=== PATIENT | female | born 1985 | race Caucasian/White ===

== ENCOUNTER → 2018-01-08 | Outpatient (CLI) | payer OTHER ==
[~2018-01-08] VITALS: Ht 172.7 cm; Wt 107.5 kg
[~2018-01-08] MED LIST: CARISOPRODOL 3350 MG PO; HYDROCHLOROTH12.5 M2 PO; NAPROXEN375 MG PO; NEURONTIN 300300 M1 PO; SEASONIQUE 0.11 EACH PO; SINGULAIR 10 MG10 M1 PO; TOPROL XL25 MG PO; UNICOMPLEX M TA1 TA1 PO
--- NOTE | ~2018-01-08 | HPC ---
[facility] [place] [address] PAIN MANAGEMENT CONSULTATION Name: SERGIO PARADA Room #: REG [facility] Ryan#: [id number] Admission: 01/08/18 Attend Phys: Derek Swann DO Discharge: Date of : 87 Report #: [id number] THIS REPORT FOR: //name// CC: Ann Swann DATE OF SERVICE: 01/08/2018 The patient is a very pleasant 32-year-old female seen in consultation 12/25/2017. We diagnosed the patient with symptomatic cervical radiculopathy, sought authorization for cervical epidural injection under fluoroscopy. She presents to pain clinic today for that procedure. Has ongoing pain, neck, left shoulder and arm. Classic neural tensioning symptoms are noted. ASSESSMENT: Symptomatic cervical radiculopathy by clinical exam and history. PROCEDURE: Cervical epidural injection under fluoroscopy. PROCEDURE NOTE: After written and informed consent was obtained including risk of dural puncture, spinal cord trauma, paralysis and increased pain, the patient was taken to the fluoroscopy suite and placed in the prone position, with appropriate abdominal bolstering, neck was flexed, palms under the thighs. Skin was prepped with ChloraPrep. Sterile draping was applied. Skin wheal with 1% Xylocaine was raised. A 22-gauge 3-1/2 inch epidural Tuohy needle was placed via a midline approach at the C7/T1 interspace, advanced under biplanar fluoroscopy using continuous loss of resistance. With appropriate loss of resistance at the expected depth on lateral view, the glass loss of resistance syringe was disconnected. A low volume extension tubing was connected to the needle and a 5 mL syringe. Negative aspiration for cerebrospinal fluid or blood was noted. A 1 mL of Omnipaque was injected which showed spread within the epidural space on biplanar fluoroscopy. This was followed with 80 mg of triamcinolone plus 1 mL of 1.5% preservative Xylocaine. Needle was withdrawn to the interspinous ligament, 0.5 mL of Xylocaine was used to flush the needle. The needle was then completely withdrawn. The area was cleansed. Band-Aid was applied. The patient was allowed to move off the procedure table and ambulated to the recovery room, monitored for an appropriate period of time, discharged in good and stable condition. The patient was discharged in good and stable condition. Follow up in 2 weeks to reevaluate. <ELECTRONICALLY SIGNED> By: Derek Swann DO 01/11/18 0709 [id number] 02 Derek Swann DO /nt
[2018-01-08 09:51] VITALS: BP 153/98
== END | disposition home or self-care (01) ==
LOC: PAIN 07:27
DX: M54.12 Radiculopathy, cervical region (principal); G89.29 Other chronic pain; Z98.890 Other specified postprocedural states; Z88.8 Allergy status to other drugs, medicaments and biological substances; Z79.899 Other long term (current) drug therapy

== ENCOUNTER → 2018-01-29 | Outpatient (CLI) | payer OTHER ==
[~2018-01-29] VITALS: Ht 172.7 cm; Wt 108.9 kg
[~2018-01-29] MED LIST changes: +TRAMADOL 50 MG50 MG PO
--- NOTE | ~2018-01-29 | HPC ---
[facility] [place] [address] PAIN MANAGEMENT CONSULTATION Name: SERGIO PARADA Room #: REG [facility]#: [id number] Admission: 01/29/18 Attend Phys: Derek Swann DO Discharge: Date of : 86 Report #: [id number] THIS REPORT FOR: //name// CC: Ann Swann DATE OF SERVICE: 01/29/2018 The patient is a very pleasant 32-year-old female, initially seen in consultation on 12/25/2017. We progressed to perform a cervical epidural injection on 01/08/2018. The patient returns to the Pain Clinic today noting significant improvement of baseline pain. She reports being "70%" back to normal. Tingling in the left arm is gone. She does now, however, have simply neck pain. Pain is actually on the other side, right, of the neck. It is exacerbated with rotation, either left or right. Cervical flexion and extension only nominally exacerbate the right-sided neck pain. Fortunately, the neuropathic symptoms are gone (negative Lhermitte's). I reviewed the patient's diagnostic findings including MRI of the cervical spine from 07/29/2017 noting disk desiccation at C5-C6 and C6-C7 with facet joint hypertrophy, degenerative changes of the small left hyperintense perineural cyst at C4-C5. PHYSICAL EXAMINATION: Otherwise notes a pleasant 32-year-old female, BMI is modestly elevated 36.5 kg/m2. Blood pressure is 144/85, pulse 89, respirations 16. Cervical range of motion limited as noted above. Upper extremity strength, however, is generally preserved. Hand grasp is symmetric. Skin integument is intact. She is alert and oriented to person, place, and time, judged to be a reasonable historian. ASSESSMENT: 1. Symptomatic cervical radiculopathy by clinical exam and history. Symptoms relatively improved following single epidural injection. 2. Cervical spondylosis without myelopathy with pain in the right neck corresponding with cervical facet changes on MRI. RECOMMENDATIONS: 1. We will renew naproxen sodium 375 b.i.d., 60 tablets. 2. Renew tramadol 50 mg 1 tablet q. 4 hours as needed for pain, limit 60 tablets, no refill. 3. We will seek authorization for right-sided C4-C5, C5-C6 and C6-C7 cervical facets on the right. [address] [address] PAIN MANAGEMENT CONSULTATION Name: SERGIO PARADA Room #: REG [facility] Ryan#: [id number] Admission: 01/29/18 Attend Phys: Derek Swann DO Discharge: Date of : 87 Report #: [id number] 4. I will plan on seeing the patient back after the 07 of February, 30 days after her last injection for aforementioned procedure. <ELECTRONICALLY SIGNED> By: Derek Swann DO 02/01/18 0710 [id number] Derek Swann DO /isa
[2018-01-29 12:39] VITALS: BP 144/85
== END ==
LOC: PAIN 01-22 13:25
DX: M47.22 Other spondylosis with radiculopathy, cervical region (principal)

== ENCOUNTER → 2018-02-12 | Outpatient (CLI) | payer OTHER ==
[~2018-02-12] VITALS: Ht 172.7 cm; Wt 107.5 kg
--- NOTE | ~2018-02-12 | HPC ---
[address] [place] [address] PAIN MANAGEMENT CONSULTATION Name: SERGIO PARADA Yumiko [facility] [id number] Admission: 02/12/18 Attend Phys: Derek Swann DO Discharge: Date of : 86 Report #: [id number] THIS REPORT FOR: //name// CC: Ann Swann DATE OF SERVICE: 02/12/2018 The patient is a very pleasant 32-year-old female, prior seen in the Pain Clinic for symptomatic cervical radiculopathy. Cervical epidural injection significantly relieved radicular pain. She was last seen on 01/29/2018 with ongoing cervical spondylitic pain (M47.812). She presents to the Pain Clinic today for prior authorized right-sided cervical facet joint injections under fluoroscopy. ASSESSMENT: Symptomatic cervical spondylosis without myelopathy by clinical exam and history. PROCEDURE: Three-level right cervical facet joint injection under fluoroscopy. PROCEDURE NOTE: After written informed consent was obtained, patient was taken to the fluoroscopy suite and placed in prone position. After sterile prep and drape, skin wheal with Xylocaine was raised. We identified the area of primary pain, which was at C3-C4. We elected to proceed with facet joint injections at C2-C3, C3-C4 and C4-C5. Three 22-gauge stylet needle was placed to contact posterior aspect of the right C2-C3, C3-C4, and C4-C5 cervical facet joint. AP and lateral projections showed good needle placement. 2 mg of Decadron plus 1 mL of 0.5% preservative-free bupivacaine was injected at each site. All 3 needles removed. The area was cleansed, Band-Aids applied. The patient monitored for an appropriate period of time, discharged in good and stable condition. Please note that patient's pain was absent on discharge, having been a 4 on admission. Fluoroscopy time was 9 seconds. <ELECTRONICALLY SIGNED> By: Derek Swann DO 02/15/18 0659 [id number] [id number] Derek Swann DO /nt
[2018-02-12 13:39] VITALS: BP 132/86
== END | disposition home or self-care (01) ==
LOC: PAIN 02-05 07:46
DX: M47.812 Spondylosis without myelopathy or radiculopathy, cervical region (principal); G89.29 Other chronic pain; Z88.8 Allergy status to other drugs, medicaments and biological substances; Z79.899 Other long term (current) drug therapy

== ENCOUNTER → 2019-07-26 | Outpatient (CLI) | payer OTHER ==
[~2019-07-26] VITALS: Ht 172.7 cm; Wt 102.9 kg
[~2019-07-26] MED LIST changes: +SOMA350 MG PO; +ULTRAM 50MG TAB50 MG PO
[2019-07-26 12:50] VITALS: BP 122/76
--- NOTE | 2019-07-26 13:07 | NUR ---
Pain Clinic Assessment: 1. History of Osteoarthritis: Not Applicable History of Rheumatoid Arthritis: Not Applicable 2. Height: 5 ft. 8 in. 172.7 cm. Weight: 226.8 lb. oz. 102.876 kg. Patient's BMI: 34.5 3. Vital Signs: BP: 122/76 Pulse: 129 Resp: 16 Temp: 02 Sat: 100 ECG Mon: 4. Pain Intensity: 6 5. Fall Risk: Dizziness: N Needs help standing or walking: N Fallen in the last 3 months: N Fall risk comments: 6. Patient on Blood Thinner: None 7. History of Hypertension: Y 8. Opioid Therapy greater than 6 weeks: Y Opiate Contract Signed: 9. Risk Assessment Tool Provided: LOW RISK 2/3 10. Functional Assessment Tool: 11. Recreational Drug Use: Never Drug Type: Tobacco Use: Never Smoker Tobacco Type: Amount or Packs/day: How Many Years: Alcohol Use: Yes Frequency: Weekly Quant: WITH DINNER, WEEKENDS
--- NOTE | 2019-08-08 10:05 | HPC ---
[facility] [place] [address] PAIN MANAGEMENT CONSULTATION Name: SERGIO PARADA Room #: REG [facility] Stan.#: [id number] Admission: 07/26/19 Attend Phys: Edison Swann DO Discharge: Date of : 86 Report #: [id number] THIS REPORT FOR: //name// CC: nAn Swann DATE OF SERVICE: 07/26/2019 REFERRING PHYSICIAN: Ann Bernal M.D. CHIEF COMPLAINT: Neck pain, left upper extremity pain with paresthesias. HISTORY OF PRESENT ILLNESS: As you know, the patient is a 33-year-old female who reports a pain level of 6/10 involving the neck and left upper extremity, bilateral shoulders. She states the pain does radiate from the neck into the posterior head. She describes the pain as sharp, shooting and tingling, exacerbated with activities, turning her head. The pain improves with medications, being provided by her PCP in the form of tramadol and reportedly Soma as well as heat and cold compresses. She has been referred back to our service by her PCP to discuss treatment options for ongoing neck pain, likely related to cervical radiculopathy and cervical facet arthropathy. The patient was advised upon making the appointment here at our clinic that we no longer provide intra-articular facet injections for cervical spine nor we do treatments for facet arthropathy in the cervical area with radiofrequency lesioning. This was done by a partner who is no longer with the clinic. She returns today in followup visit per the request of Dr. Ann Bernal to undergo interventional treatments. ALLERGIES: MORPHINE. CURRENT MEDICATIONS: Tramadol 50 mg 2 tabs every 8 hours p.r.n. for pain, naproxen 220 mg twice a day, Soma 350 mg twice a day, multivitamin 1 tab per day, Seasonique 0.15/0.03/0.01 per day, gabapentin 300 mg p.o. at bedtime. SOCIAL HISTORY: The patient denies tobacco, IV or illicit drug use. Admits occasional alcohol beverage. She is working as an office services associate, not receiving workmen's compensation or is trying to obtain discrete benefits. She is unaccompanied at today's visit. REVIEW OF SYSTEMS: Positive for neck pain, left upper extremity pain with paresthesias, head pain. All other review of systems negative per 12-point review of systems other than those listed in history of present illness. IMAGING: No new imaging available. [facility] [address] [place] [address] PAIN MANAGEMENT CONSULTATION Name: SERGIO PARADA Room #: REG [facility]#: [id number] Admission: 07/26/19 Attend Phys: Edison Swann DO Discharge: Date of : 86 Report #: [id number] PHYSICAL EXAMINATION: VITAL SIGNS: Blood pressure 122/76, pulse is 129, respiratory rate 16 and unlabored. The patient is 100% on room air. Height 5 feet 8 inches tall, weight 226.8 pounds, BMI calculated 34.5. GENERAL: Well-developed, well-nourished, well-hydrated 33-year-old female appearing stated age, pain is rated today at around 6/10. HEENT: Normocephalic, atraumatic. Pupils equal, round, reactive to light. Extraocular muscles are intact. EXTREMITIES: Show no clubbing, no cyanosis, no edema. LUNGS: Appear clear. No wheeze, rhonchi or rales. CARDIOVASCULAR: Regular. No appreciable gallop or rub. ABDOMEN: Soft, mildly obese, normoactive bowel sounds. MUSCULOSKELETAL: Cervical provocation testing is met with increasing neck pain, mainly over the left neck area. Deep palpation of the area causes intensification of pain. The patient's Spurling's test is equivocal. Upper extremity strength appears symmetrical 5/5. Muscle bulk and tone equal and symmetrical, intact to light touch from C5 through T1 dermatomes. ASSESSMENT: 1. Possible cervical radiculopathy. 2. Cervical spondylosis with radicular symptoms. 3. Chronic neck pain. 4. Cervicogenic headache. PLAN: 1. Based on today's physical exam and history the patient has provided, the description the patient uses in regards to pain, likely source of the patient's symptoms is a combination of chronic cervical radiculopathy and cervical facet arthropathy. We advised the patient at this time that we at [facility] do provide cervical epidural injections, but we no longer providing a radiofrequency lesioning of the facet joints of the cervical spine as many of the third libertarian payers now considering that an experimental procedure and coverage is not offered from a physician or facility standpoint. This in conjunction with the fact that cervical facet radiofrequency lesioning has been noted to cause peripheral nerve conditions leading to anesthesia dolorosa over the area. We have subsequently discontinued this option of treatment. If the patient wishes to seek further treatment referral will need to be made to a physician who continues to provide this option of treatment. 2. In regards to the patient's suspected radicular symptoms, we have suggested treatment options, which would include physical therapy, stretching exercise, core strengthening and traction techniques, which will have to be incorporated into any treatment course. We discussed medication management utilizing neuropathic pain medications and a consistent nonsteroidal anti-inflammatory. We also discussed cervical epidural injection under fluoroscopic guidance for which we will need to obtain authorization and finally surgical decompression. After reviewing risks and benefits of all proposed treatment options, the [facility] [address] [place] [address] PAIN MANAGEMENT CONSULTATION Name: SERGIO PARADA Room #: REG [facility]#: [id number] Admission: 07/26/19 Attend Phys: Edison Swann DO Discharge: Date of : 86 Report #: [id number] patient chose to move forward with a cervical epidural injection under fluoroscopic guidance. 3. The patient was advised that due to third libertarian payer restrictions, authorization will have to be obtained before the patient could undergo a cervical epidural injection. The patient will undergo the cervical epidural injection as quickly as possible. Once we have achieved this authorization, we will have the patient return to undergo this procedure. 4. The patient indicates that she has been advised by her PCP to continue the tramadol therapy and Soma. This has to be received from our clinic while we are treating her. We have agreed to provide the patient with tramadol and Soma medication dosing understanding that we will not be offering long-term treatment options from a medication standpoint as we are not taking on any new medication management patients at this time. We will be willing to provide the medication over the timeframe that we are treating the patient for the proposed 3 epidural injections, once this is completed, will be returning her care to the original prescribing physician. 5. The patient indicates that she received tramadol and Soma from her primary care consistently over the last couple of months. She indicates she is taking tramadol 50 mg 4 times a day. We have provided her with a prescription of tramadol 50 mg dose #120 to release when appropriate. PDMP taken from the patient's records show she filled 07/12/2019, thus the prescription should not release until the end of July, first part of August. Prescription was provided to the patient in written form. 6. The patient was provided a prescription of Soma 350 mg dose. The patient indicates that she is taking the medication twice a day. She was given #60 tablets to release when appropriate. Review of the patient's PDMP after the patient had left our office indicates that she was prescribed this medication only once a day and to be taken on an as needed basis. She provided us information that she was taking it twice a day and this was to be scheduled. This appears not to be the case. Prescription for the Soma was to be released in an appropriate time, most recent refill was 07/12/2019 and will likely not release this medication until the end of July, 08/10/2019. 7. We will see the patient back in followup visit once we have received authorization for the patient to undergo cervical epidural injection under fluoroscopic guidance. 8. We wish to thank Dr. Ann Bernal for the referral of this patient to our clinic. We will keep you apprised of response to treatment as we address cervical pain. Again, we wish to thank you for the opportunity to see the patient in consultation. <ELECTRONICALLY SIGNED> By: Edison Swann DO 08/08/19 1005 [id number] Edison Swann DO /nt
== END ==
LOC: PAIN 10:41
DX: M47.22 Other spondylosis with radiculopathy, cervical region (principal)

== ENCOUNTER → 2019-07-27 | Outpatient (CLI) | payer OTHER ==
[~2019-07-27] VITALS: Ht 172.7 cm; Wt 102.5 kg
[2019-07-27 15:19] VITALS: BP 152/94
--- NOTE | 2019-07-27 15:34 | NUR ---
Pain Clinic Assessment: 1. History of Osteoarthritis: Not Applicable History of Rheumatoid Arthritis: Not Applicable 2. Height: 5 ft. 8 in. 172.7 cm. Weight: 226.0 lb. oz. 102.513 kg. Patient's BMI: 34.4 3. Vital Signs: BP: 152/94 Pulse: 97 Resp: 16 Temp: 02 Sat: 99 ECG Mon: 4. Pain Intensity: 6 5. Fall Risk: Dizziness: N Needs help standing or walking: N Fallen in the last 3 months: N Fall risk comments: 6. Patient on Blood Thinner: None 7. History of Hypertension: Y 8. Opioid Therapy greater than 6 weeks: Y Opiate Contract Signed: 9. Risk Assessment Tool Provided: LOW RISK 2/3 10. Functional Assessment Tool: 11. Recreational Drug Use: Never Drug Type: Tobacco Use: Never Smoker Tobacco Type: Amount or Packs/day: How Many Years: Alcohol Use: Yes Frequency: Quant:
--- NOTE | 2019-08-08 10:05 | HPC ---
[facility] [place] [address] PAIN MANAGEMENT CONSULTATION Name: SERGIO PARADA Room #: REG [facility]#: [id number] Admission: 07/27/19 Attend Phys: Edison Swann DO Discharge: Date of : 87 Report #: [id number] THIS REPORT FOR: //name// CC: Ann Swann DATE OF SERVICE: 07/27/2019 REFERRING PHYSICIAN: Dr. Ann Bernal. CHIEF COMPLAINT: Neck pain, left upper extremity pain. HISTORY OF PRESENT ILLNESS: As you know, the patient is a 33-year-old female who has received authorization to undergo cervical epidural injection under fluoroscopic guidance. Our schedulers have been able to obtain authorization for the patient to undergo the procedure today. She returns today in followup visit reporting pain score 6/10. She has had no change in medical history over the past 24 hours. She returns to undergo first in a series of cervical epidural injections. She reports the pain is sharp, shooting and tingling, exacerbated with activity, turning her head, improves with medications, heat and cold compresses and ice. She also wishes to discuss the recent prescriptions for tramadol and Soma, stating "they were written inappropriately." She returns today to discuss the medications and to undergo cervical epidural injection. ALLERGIES: MORPHINE. CURRENT MEDICATIONS: Tramadol, carisoprodol, naproxen, multivitamin, Seasonique and gabapentin. SOCIAL HISTORY: The patient denies tobacco, IV or illicit drug use. Admits to occasional alcohol beverage. She is employed. She is not currently working as she is off due to the holiday season. She is unaccompanied today. IMAGING: No new imaging available. PHYSICAL EXAMINATION: VITAL SIGNS: Blood pressure 152/94, pulse 97, respiratory rate 16 and unlabored, the patient is 99% on room air. Height 5 feet 8 inches tall, weight 226.0 pounds, BMI calculated 34.4. GENERAL: Well-developed, well-nourished, well-hydrated 33-year-old female appearing stated age, pain is rated today around 6/10. HEENT: Normocephalic, atraumatic. Pupils equal, round and reactive to light. EXTREMITIES: Show no clubbing, no cyanosis, no edema. MUSCULOSKELETAL: Upper extremity strength is equal and symmetrical 5/5, intact to light touch from C5-T1 dermatomes. Deep tendon reflexes are symmetrical in [facility] [address] [place] [address] PAIN MANAGEMENT CONSULTATION Name: SERGIO PARADA Room #: REG [facility]#: [id number] Admission: 07/27/19 Attend Phys: Edison Swann DO Discharge: Date of : 87 Report #: [id number] the biceps, brachialis and triceps. Spurling's test is equivocal. There is palpatory tenderness over the paraspinal musculature of the cervical spine on the left. No spinous process tenderness. ASSESSMENT: 1. Cervical radiculopathy. 2. Cervical spondylosis with radiculopathy. 3. Chronic neck pain. 4. Cervicogenic headache. PLAN: 1. The patient returns today in followup visit having received precertification to undergo a cervical epidural injection under fluoroscopic guidance. The patient has been advised of the risks and the benefits of a cervical epidural injection. These risks include but are not necessarily limited to bleeding, bruising, infection, worsening pain, no relief of pain, also risk of temporary or permanent muscle weakness, temporary or permanent nerve damage, possible paralysis and . The patient states understood and wished to proceed. 2. The patient reports that we have inadvertently made an error on the prescriptions that we provided to her at our visit of last evening. I reviewed the prescriptions, they are appropriate. The patient was given tramadol 50 mg dose #120 to release in an appropriate timeframe. It appears from the PDMP, the patient was filled the medication on 07/12/2019 from a prescription from her PCP and thus the prescription I have provided is not to be released until the first part of August, the appropriate timeframe for medication release. 3. The patient indicates that we had inadvertently made an error on the prescription, we have written for Soma 350 mg dose. We have written it for twice a day, #60 tablets, which is appropriate. The patient indicates that we had made an error on our prescription, though I have reviewed this and found there is no error in the prescription. It does appear that the pharmacist at the patient's local pharmacy has been concerned about this refill. It does appear that she received prescriptions from Dr. Ann Bernal for a month worth of Soma and she is trying to fill the medication early. This is not to be released until the appropriate time. As I indicated to the patient when I met her yesterday, I am not comfortable with continued writing Soma as this has a high addiction potential and in my opinion, it is not necessary in the patient's current treatment. If Dr. Bernal wishes to continue the therapy, she could certainly do so, though our corporate policy has been with Soma to discontinue therapy as it has a high addiction potential and a low efficacious profile. We will not be adjusting her prescription at this time. 4. We will see the patient back in followup visit in 30 days. At that time, review the efficacy of today's cervical epidural injection will determine if next in the series would be necessary. PROCEDURE NOTE [facility] [address] [place] [address] PAIN MANAGEMENT CONSULTATION Name: FERMÍN PARADACLEMENCIA Calderon [facility] [id number] Admission: 07/27/19 Attend Phys: Edison Swann DO Discharge: Date of : 86 Report #: [id number] DESCRIPTION OF PROCEDURE: C6-C7 cervical epidural steroid injection under fluoroscopic guidance. This is the first procedure of the first series that the patient is undergoing. After obtaining written consent, the patient was taken back to the fluoroscopy suite and placed in a prone position with separate pillows under chest to decrease cervical lordosis. The skin overlying the cervical area was prepped and draped in an aseptic fashion. The C6-C7 vertebral interspace was identified by AP fluoroscopy. The skin and subcutaneous tissue overlying the target site of injection was anesthetized using 3 mL of 1% lidocaine. A 20-gauge 3-1/2-inch Tuohy needle was advanced under fluoroscopic guidance toward the epidural space using a left parasagittal approach. The epidural space was identified using a loss of resistance to air technique. After negative aspiration for heme or cerebrospinal fluid, a total of 1 mL of Omnipaque was injected. A cervical epidurogram was confirmed using AP and oblique fluoroscopy. After negative aspiration for heme or cerebrospinal fluid, 5 mL of a solution containing 2 mL 40 mg per mL, 80 mg total triamcinolone and 3 mL lidocaine 1% was injected in increments. Contrast spread was noted from posterior epidural space. The needle was then retracted approximately alf and the needle track was flushed with 1 mL of 1% lidocaine. There were no apparent new sensory deficits in the upper extremities present following the procedure. A sterile bandage was placed over the injection site. The heart rate, pulse oximetry and blood pressure were continuously monitored after the procedure. There were no apparent complications. The patient tolerated the procedure well and was carefully escorted in the recovery room in stable condition. After meeting discharge criteria, the patient was discharged home. <ELECTRONICALLY SIGNED> By: Edison Swann DO 08/08/19 1005 [id number] Edison Swann DO /nt
== END | disposition home or self-care (01) ==
LOC: PAIN 09:42
DX: M47.22 Other spondylosis with radiculopathy, cervical region (principal); G89.29 Other chronic pain; G44.89 Other headache syndrome; Z98.890 Other specified postprocedural states; Z88.8 Allergy status to other drugs, medicaments and biological substances; Z79.899 Other long term (current) drug therapy

== ENCOUNTER → 2019-09-07 | Outpatient (CLI) | payer OTHER ==
[~2019-09-07] VITALS: Ht 172.7 cm; Wt 106.3 kg
[~2019-09-07] MED LIST changes: +GABAPENTIN 100100 MG PO; -NEURONTIN 300300 M1 PO; +SOMA250 MG PO
[2019-09-07 12:50] VITALS: BP 121/97
--- NOTE | 2019-09-07 13:02 | NUR ---
Pain Clinic Assessment: 1. History of Osteoarthritis: DENIES History of Rheumatoid Arthritis: DENIES 2. Height: 5 ft. 8 in. 172.7 cm. Weight: 234.4 lb. oz. 106.323 kg. Patient's BMI: 35.6 3. Vital Signs: BP: 121/97 Pulse: 107 Resp: 16 Temp: 02 Sat: 100 ECG Mon: 4. Pain Intensity: 0 NOW 7 YESTERDAY 10 MIN 5. Fall Risk: Dizziness: N Needs help standing or walking: N Fallen in the last 3 months: N Fall risk comments: 6. Patient on Blood Thinner: None 7. History of Hypertension: Y 8. Opioid Therapy greater than 6 weeks: Y Opiate Contract Signed: 9. Risk Assessment Tool Provided: LOW RISK / 10. Functional Assessment Tool: 11. Recreational Drug Use: Never Drug Type: Tobacco Use: Never Smoker Tobacco Type: Amount or Packs/day: How Many Years: Alcohol Use: Yes Frequency: Weekly Quant:
--- NOTE | 2019-09-09 07:46 | HPC ---
[facility] [place] [address] PAIN MANAGEMENT CONSULTATION Name: SERGIO PARADA Room #: REG [facility].#: [id number] Admission: 09/07/19 Attend Phys: Edison Swann DO Discharge: Date of : 87 Report #: [id number] THIS REPORT FOR: //name// CC: Ann Swann DATE OF SERVICE: 09/07/2019 REFERRING PHYSICIAN: Ann Bernal M.D. CHIEF COMPLAINT: Neck pain, left upper extremity pain. HISTORY OF PRESENT ILLNESS: As you know, the patient is a 34-year-old female who has undergone a cervical epidural injection under fluoroscopic guidance at our visit of 07/27/2019. She reports an improvement in symptoms of near 100%. She has only had intermittent left neck discomfort that she describes as more of a spasming affect, but has not had a recurrence of her typical pain. She is very pleased with the response to the epidural injection. She returns today in followup visit to discuss options for treatment for the residual symptoms she is experiencing, which appears to be myofascial in origin. The patient indicates pain level at 0/10. She had a 10-minute timeframe where she had 7/10 pain that was spasming in nature and resolved spontaneously. She returns to discuss options for treatment for this residual pain. ALLERGIES: MORPHINE. CURRENT MEDICATIONS: Tramadol, carisoprodol, naproxen, multivitamin, Seasonique. SOCIAL HISTORY: The patient denies tobacco, IV or illicit drug use. Admits to occasional alcohol beverage. She is unaccompanied today. IMAGING: No new imaging available. PHYSICAL EXAMINATION: VITAL SIGNS: Blood pressure 121/97, pulse is 107, respiratory rate 16 and unlabored. The patient is 100% on room air. Height 5 feet 8 inches tall, weight 234.4 pounds, BMI calculated 35.6. GENERAL: Well-developed, well-nourished, well-hydrated, exogenously obese 34-year-old female appearing stated age, placing current pain score 0/10. HEENT: Normocephalic, atraumatic. Pupils equal, round, reactive to light. Speech fluent. EXTREMITIES: Show no clubbing, no cyanosis and no edema. MUSCULOSKELETAL: Upper extremity strength remains symmetrical at 5/5. Muscle bulk and tone equal and symmetrical when comparing left upper extremity to the [address] [address] PAIN MANAGEMENT CONSULTATION Name: SERGIO PARADA [facility] [id number] Admission: 09/07/19 Attend Phys: Edison Swann DO Discharge: Date of : 87 Report #: [id number] right. She is intact to light touch from C5 through T1 dermatomes. Deep tendon reflexes remain symmetrical. Spurlings test is equivocal. There is some palpatory tenderness over the paraspinal musculature of the cervical spine on the left, negative right. ASSESSMENT: 1. Cervical radiculopathy. 2. Cervical spondylosis with radiculopathy. 3. Chronic neck pain. 4. Cervicogenic headache. PLAN: 1. The patient returns today in a followup visit, reporting near 100% improvement in overall pain with the epidural injection provided in 07/2019. She returns today in a followup visit, reporting only a 10-minute timeframe of left neck pain that occurred yesterday, but spontaneously resolved. She continues to utilize the Soma on an as needed basis, though we have recommended that she wean down on this medication and utilize it only when there is pain for a greater period of time than the 10-minute timeframe. This is not to be used prophylactically. The patient and I did discuss the potential of addiction with Soma, and I do not recommend long-term treatment with this medication. We have agreed to provide the patient with a 1-month prescription of the medication at the reduced 250 mg dose with plans to come off the medication entirely at the end of that month. 2. The patient was provided a prescription of Soma 250 mg dose 1 tab p.o. b.i.d. Again, the patient had #60 tablets, no refills. Prescription was provided to the patient in written form today. Again, the patient is to take this medication only on an as needed basis. 3. The patient and I did discuss that myofascial pain can be treated in a more conservative fashion. We discussed traction techniques, myofascial release, acupuncture therapy and massage therapy as options for treatment. The patient will look into acupuncture therapy. I did provide the patient with names of highly rated acupuncture professionals in our area based on patient feedback. The patient can follow up with acupuncture therapy on an as needed basis. 4. We will be available to see the patient back in followup visit on an as needed basis for possible epidural injection. We are hopeful this epidural injection provided in July will provide ongoing pain relief. We are pleased to see she has done well with this injection. We will see her back on an as needed basis for epidural injection. Any medication refills the patient may require, can return to her PCP. <ELECTRONICALLY SIGNED> By: Edison Swann DO 09/09/19 [id number] Edison Swann, /nt
== END ==
LOC: PAIN 07:00
DX: M47.22 Other spondylosis with radiculopathy, cervical region (principal); G89.29 Other chronic pain; Z79.891 Long term (current) use of opiate analgesic; Z79.899 Other long term (current) drug therapy